=== PATIENT | male | born 1990 | race Caucasian/White ===

== ENCOUNTER 2016-06-27 10:58 | Inpatient (IN) | payer OTHER ==
[~2016-06-27] VITALS: Ht 175.3 cm; Wt 68.9 kg
[~2016-06-27 10:58] MED LIST: KEFLEX500 MG PO; Tylenol PR; Vicodin,Norco 5/325 PO; oxyCODONE PO
[2016-06-27 11:52] LABS: HEMATOCRIT 48.2 % (38.0-50.0); MCH 29.8 PG (29.0-34.0); MCHC 34.2 G/DL (30.0-36.0); MCV 87.2 FL (86-99); MEAN PLAT.VOLUME 9.5 uM^3 (9.0-12.4); PLATELET COUNT 291 K/uL (156-360); RED BLOOD COUNT 5.53 M/uL (4.00-5.50); WHITE BLOOD COUNT 10.2 K/uL (4.1-10.2)
[2016-06-27 12:00] LABS: CHLORIDE 103 mEq/L (99-109); POTASSIUM 4.1 mEq/L (3.7-5.4); SODIUM 137 mEq/L (136-147)
[2016-06-27 12:02] LABS: GLUCOSE 82 mg/dL (70-99)
[2016-06-27 12:04] LABS: ANION GAP 14 MEQ/L (2-14)
[2016-06-27 12:05] LABS: SERUM ETHYL ALCOHOL < 10 mg/dL
[2016-06-27 12:06] LABS: GFR ESTIMATE (CALCULATED) > 59 mL/min/
[2016-06-27 12:07] LABS: UREA NITROGEN (BUN) 12 mg/dL (9-23)
[2016-06-27 12:31] LABS: AMPHETAMINE PRESUMPTIVE POSITIVE (500 ng/mL); BARBITURATES NEGATIVE (200 ng/mL); BENZODIAZEPINES NEGATIVE (150 ng/mL); COCAINE PRESUMPTIVE POSITIVE (150 ng/mL); INTERNAL CONTROLS VALID? YES; METHADONE NEGATIVE (200 ng/mL); METHAMPHETAMINE NEGATIVE (500 ng/mL); OPIATES (MORPHINE) NEGATIVE (100 ng/mL); OXYCODONE NEGATIVE (100 ng/mL); PHENCYCLIDINE NEGATIVE (25 ng/mL); PROPOXYPHENE NEGATIVE (300 ng/mL); THC CANNABINOIDS PRESUMPTIVE POSITIVE (50 ng/mL); TRICYCLIC ANTIDEPRESSANTS NEGATIVE (300 ng/mL)
[2016-06-27 12:32] LABS: ADD MEDTOX COMMENT Y
[2016-06-27] MEDS ORDERED: PROAIR HFA8.5 GM IH (13:10)
[2016-06-27 16:51] VITALS: BP 101/70
[2016-06-28 07:47] VITALS: BP 115/80
[2016-06-28 12:47] VITALS: BP 112/59
[2016-06-28 15:01] VITALS: BP 117/62
[2016-06-28 18:08] VITALS: BP 107/56
[2016-06-28 21:19] VITALS: BP 116/68
[2016-06-29 07:43] VITALS: BP 110/52
== END 2016-06-29 10:19 | disposition home or self-care (01) | DRG 881 ==
LOC: EME 10:58 → EDOF 12:52 → 1WEST 12:52
PROVIDERS: Emergency Medicine
PROC: HZ2ZZZZ Detoxification Services for Substance Abuse Treatment (ICD-10-PCS; principal; 2016-06-27)
DX: F32.9 Major depressive disorder, single episode, unspecified (principal); F11.20 Opioid dependence, uncomplicated; F12.90 Cannabis use, unspecified, uncomplicated; F15.10 Other stimulant abuse, uncomplicated; J45.990 Exercise induced bronchospasm; F17.210 Nicotine dependence, cigarettes, uncomplicated; R45.851 Suicidal ideations; F14.10 Cocaine abuse, uncomplicated; Z81.1 Family history of alcohol abuse and dependence; Z81.8 Family history of other mental and behavioral disorders
CPT/HCPCS: 80048; 84999; 85027; 90839; 99202; 99281; 99285; G0480; Q0169

== ENCOUNTER 2016-07-23 09:33 | Emergency (ER) | payer OTHER ==
[~2016-07-23] VITALS: Ht 175.3 cm; Wt 65.8 kg
[~2016-07-23 09:33] MED LIST changes: +PROAIR HFA8.5 GM IH
[2016-07-23 11:08] LABS: HEMATOCRIT 40.5 % (38.0-50.0); MCH 29.8 PG (29.0-34.0); MCHC 33.8 G/DL (30.0-36.0); MCV 88.2 FL (86-99); MEAN PLAT.VOLUME 10.1 uM^3 (9.0-12.4); PLATELET COUNT 298 K/uL (156-360); RBC DIS.WIDTH-CV 13.5 % (11.8-14.6); RBC DIS.WIDTH-SD 43.8 % (39-53); RED BLOOD COUNT 4.59 M/uL (4.00-5.50); WHITE BLOOD COUNT 10.1 K/uL (4.1-10.2)
[2016-07-23 11:20] LABS: CHLORIDE 110 mEq/L (99-109); POTASSIUM 4.2 mEq/L (3.7-5.4); SODIUM 141 mEq/L (136-147)
[2016-07-23 11:21] LABS: GLUCOSE 95 mg/dL (70-99)
[2016-07-23 11:23] LABS: ANION GAP 8 MEQ/L (2-14)
[2016-07-23 11:25] LABS: GFR ESTIMATE (CALCULATED) > 59 mL/min/; SERUM ETHYL ALCOHOL < 10 mg/dL
[2016-07-23 11:27] LABS: UREA NITROGEN (BUN) 15 mg/dL (9-23)
[2016-07-23 11:28] LABS: SALICYLATE < 5.0 MG/DL (15-30)
[2016-07-23 11:46] LABS: ADD MEDTOX COMMENT Y; AMPHETAMINE NEGATIVE (500 ng/mL); BARBITURATES NEGATIVE (200 ng/mL); BENZODIAZEPINES NEGATIVE (150 ng/mL); COCAINE PRESUMPTIVE POSITIVE (150 ng/mL); INTERNAL CONTROLS VALID? YES; METHADONE NEGATIVE (200 ng/mL); METHAMPHETAMINE NEGATIVE (500 ng/mL); OPIATES (MORPHINE) NEGATIVE (100 ng/mL); OXYCODONE NEGATIVE (100 ng/mL); PHENCYCLIDINE NEGATIVE (25 ng/mL); PROPOXYPHENE NEGATIVE (300 ng/mL); THC CANNABINOIDS PRESUMPTIVE POSITIVE (50 ng/mL); TRICYCLIC ANTIDEPRESSANTS NEGATIVE (300 ng/mL)
[2016-07-23 15:07] VITALS: BP 113/64
== END 2016-07-23 15:22 | disposition home or self-care (01) ==
LOC: EME 09:33
PROVIDERS: Emergency Medicine
DX: F32.9 Major depressive disorder, single episode, unspecified (principal); J45.909 Unspecified asthma, uncomplicated; F17.200 Nicotine dependence, unspecified, uncomplicated; Z59.0 Homelessness
CPT/HCPCS: 80048; 84999; 85027; 90839; 99281; 99284; G0480

== ENCOUNTER 2017-01-19 00:02 | Inpatient (IN) | payer OTHER ==
[~2017-01-19] VITALS: Ht 175.3 cm; Wt 75.3 kg
[2017-01-19 01:19] LABS: BASOPHIL COUNT 0.1 K/uL (0-0.1); EOSINOPHIL (%) 1.6 % (0-5); EOSINOPHIL COUNT 0.2 K/uL (0-0.3); HEMATOCRIT 39.9 % (38.0-50.0); IMMATURE GRANULOCYTE (%) 0.2 % (0.0-0.7); INSTRUMENT ABS NEUTROPHIL CT 7.5 K/uL; LYMPHOCYTE COUNT 3.7 K/uL (1.0-2.8); MCH 29.8 PG (29.0-34.0); MCHC 34.3 G/DL (30.0-36.0); MCV 86.9 FL (86-99); MONOCYTE (%) 5.5 % (3-12); MONOCYTE COUNT 0.7 K/uL (0-0.8); NEUTROPHIL (%) 61.6 % (45-76); NEUTROPHIL COUNT 7.5 K/uL (1.8-6.4); PLATELET COUNT 374 K/uL (156-360); RBC DIS.WIDTH-CV 13.2 % (11.8-14.6); RBC DIS.WIDTH-SD 41.6 % (39-53); RED BLOOD COUNT 4.59 M/uL (4.00-5.50); WHITE BLOOD COUNT 12.1 K/uL (4.1-10.2)
[2017-01-19 01:32] LABS: CHLORIDE 101 mEq/L (99-109); POTASSIUM 3.4 mEq/L (3.7-5.4); SODIUM 136 mEq/L (136-147)
[2017-01-19 01:34] LABS: GLUCOSE 120 mg/dL (70-99)
[2017-01-19 01:36] LABS: ANION GAP 10 MEQ/L (2-14)
[2017-01-19 01:37] LABS: SERUM ETHYL ALCOHOL < 10 mg/dL
[2017-01-19 01:38] LABS: GFR ESTIMATE (CALCULATED) > 59 mL/min/ (58.99-99999)
[2017-01-19 01:39] LABS: UREA NITROGEN (BUN) 12 mg/dL (9-23)
[2017-01-19 03:00] LABS: ADD MEDTOX COMMENT Y; AMPHETAMINE NEGATIVE (500 ng/mL); BARBITURATES NEGATIVE (200 ng/mL); BENZODIAZEPINES NEGATIVE (150 ng/mL); COCAINE PRESUMPTIVE POSITIVE (150 ng/mL); INTERNAL CONTROLS VALID? YES; METHADONE NEGATIVE (200 ng/mL); METHAMPHETAMINE NEGATIVE (500 ng/mL); OPIATES (MORPHINE) NEGATIVE (100 ng/mL); OXYCODONE NEGATIVE (100 ng/mL); PHENCYCLIDINE NEGATIVE (25 ng/mL); PROPOXYPHENE NEGATIVE (300 ng/mL); THC CANNABINOIDS PRESUMPTIVE POSITIVE (50 ng/mL); TRICYCLIC ANTIDEPRESSANTS NEGATIVE (300 ng/mL)
[2017-01-19 03:33] VITALS: BP 134/71
[2017-01-19] MEDS ORDERED: SEROQUEL300 MG PO (03:39)
[2017-01-19] MEDS ORDERED: LAMICTAL200 MG PO (03:40)
[2017-01-19] MEDS ORDERED: SUBOXONE 8 MG-1 EAC2 PO (03:43)
[2017-01-19 07:58] VITALS: BP 118/72
[2017-01-19 15:18] VITALS: BP 124/61
[2017-01-20 07:44] VITALS: BP 97/54
[2017-01-20 17:06] VITALS: BP 116/63
[2017-01-21 07:36] VITALS: BP 103/58
[2017-01-21] MEDS ORDERED: QUETIAPINE FUM100 MG PO (07:43)
[2017-01-21] MEDS ORDERED: LIDOCAINE20 MG/1 M5 MM (07:48)
== END 2017-01-21 08:24 | disposition other institution (70) | DRG 881 ==
LOC: EME 00:02 → 1WEST 02:15 → EDOF 02:15 → ENRESERV 03:04 → 1WEST 03:26
PROVIDERS: Emergency Medicine
DX: F32.9 Major depressive disorder, single episode, unspecified (principal); F11.10 Opioid abuse, uncomplicated; F12.10 Cannabis abuse, uncomplicated; F14.10 Cocaine abuse, uncomplicated; R45.851 Suicidal ideations; J45.990 Exercise induced bronchospasm; F41.9 Anxiety disorder, unspecified; F17.200 Nicotine dependence, unspecified, uncomplicated; Z56.0 Unemployment, unspecified
CPT/HCPCS: 80048; 84999; 85025; 90839; 97150 GO; 97165 GO; 99281; 99285; G0480; Q0177

== ENCOUNTER 2017-03-20 10:46 | Emergency (ER) | payer OTHER ==
[~2017-03-20] VITALS: Ht 175.3 cm; Wt 85.0 kg
[~2017-03-20 10:46] MED LIST changes: +LAMICTAL200 MG PO; +LIDOCAINE20 MG/1 M5 MM; +QUETIAPINE FUM100 MG PO; +SEROQUEL300 MG PO; +SUBOXONE 8 MG-1 EAC2 PO
[2017-03-20 11:54] LABS: APPEARANCE CLEAR ((CLEAR)); BILIRUBIN NEGATIVE; BLOOD NEGATIVE; COLOR YELLOW ((YELLOW)); GLUCOSE (STRIP) NEGATIVE; KETONES NEGATIVE; LEUKOCYTES NEGATIVE; NITRITE NEGATIVE; PROTEIN (STRIP) NEGATIVE; SPECIFIC GRAVITY 1.021 (1.000-1.030); UCUL ADDED? NO; UROBILINOGEN 0.2 MG/DL (0.2-1.0)
[2017-03-20 12:19] LABS: SOURCE URINE
[2017-03-20 13:05] VITALS: BP 130/61
[2017-03-21 12:44] LABS: CHLAMYDIA TRACHOMATIS NEGATIVE; NEISSERIA GONORRHOEAE NEGATIVE
== END 2017-03-20 13:10 | disposition home or self-care (01) ==
LOC: EME 10:46
PROVIDERS: Emergency Medicine
DX: R30.0 Dysuria (principal); J45.909 Unspecified asthma, uncomplicated; F31.9 Bipolar disorder, unspecified; F41.9 Anxiety disorder, unspecified; F17.200 Nicotine dependence, unspecified, uncomplicated
CPT/HCPCS: 81003; 87491; 87591; 99281; 99283

== ENCOUNTER 2017-08-16 19:21 | Inpatient (IN) | payer SELFPAY ==
[2017-08-17 07:55] VITALS: BP 121/88
[2017-08-17 16:00] VITALS: BP 123/69
[2017-08-18 08:13] VITALS: BP 106/52
[2017-08-18 16:51] VITALS: BP 113/57
[2017-08-18 21:36] VITALS: BP 126/62
[2017-08-19 07:36] VITALS: BP 77/40
[2017-08-19 10:38] VITALS: BP 109/56
[2017-08-19 16:18] VITALS: BP 106/59
[2017-08-20 07:40] VITALS: BP 111/53
[2017-08-20 11:54] VITALS: BP 133/69
[2017-08-20 15:15] VITALS: BP 102/57
[2017-08-21 07:43] VITALS: BP 96/50
[2017-08-21 15:04] VITALS: BP 113/58
[2017-08-22 07:42] VITALS: BP 101/56
[2017-08-22] MEDS ORDERED: QUETIAPINE FUM200 MG PO (09:29)
[2017-08-22] MEDS ORDERED: LITHIUM CARBON300 MG PO (09:29)
== END 2017-08-22 11:27 | disposition home or self-care (01) | DRG 881 ==
LOC: 1WEST 19:21
DX: F32.9 Major depressive disorder, single episode, unspecified (principal); F11.20 Opioid dependence, uncomplicated; F14.20 Cocaine dependence, uncomplicated; R45.851 Suicidal ideations; F60.2 Antisocial personality disorder; Z72.89 Other problems related to lifestyle; J45.990 Exercise induced bronchospasm; Z56.0 Unemployment, unspecified; F12.90 Cannabis use, unspecified, uncomplicated
CPT/HCPCS: 90832; 94799; 97150 GO; 97165 GO; J0572; J0574; Q0169; Q0177

== ENCOUNTER 2017-09-29 03:21 | Inpatient (IN) | payer OTHER ==
[~2017-09-29] VITALS: Ht 175.3 cm; Wt 71.4 kg
[~2017-09-29 03:21] MED LIST changes: +LITHIUM CARBON300 MG PO; +QUETIAPINE FUM200 MG PO
[2017-09-29 05:09] LABS: AMPHETAMINE NEGATIVE (500 ng/mL); BENZODIAZEPINES PRESUMPTIVE POSITIVE (150 ng/mL); COCAINE PRESUMPTIVE POSITIVE (150 ng/mL); METHAMPHETAMINE NEGATIVE (500 ng/mL); OPIATES (MORPHINE) PRESUMPTIVE POSITIVE (100 ng/mL); PHENCYCLIDINE NEGATIVE (25 ng/mL); THC CANNABINOIDS PRESUMPTIVE POSITIVE (50 ng/mL)
[2017-09-29 05:10] LABS: BARBITURATES NEGATIVE (200 ng/mL); BUPRENORPHINE PRESUMPTIVE POSITIVE (10 ng/mL); METHADONE NEGATIVE (200 ng/mL); OXYCODONE NEGATIVE (100 ng/mL); PROPOXYPHENE NEGATIVE (300 ng/mL); TRICYCLIC ANTIDEPRESSANTS NEGATIVE (300 ng/mL)
[2017-09-29 06:08] LABS: HEMATOCRIT 35.2 % (38.0-50.0); HEMOGLOBIN 12.4 G/DL (12.5-16.6); MCH 30.5 PG (29.0-34.0); MCHC 35.2 G/DL (30.0-36.0); MCV 86.7 FL (86-99); PLATELET COUNT 270 K/uL (156-360); RBC DIS.WIDTH-CV 13.3 % (11.8-14.6); RBC DIS.WIDTH-SD 42.7 % (39-53); RED BLOOD COUNT 4.06 M/uL (4.00-5.50); WHITE BLOOD COUNT 15.2 K/uL (4.1-10.2)
[2017-09-29 06:36] LABS: CHLORIDE 102 MEQ/L (99-109); GFR ESTIMATE (CALCULATED) > 59 mL/min/ (58.99-99999); GLUCOSE 110 mg/dL (70-99); POTASSIUM 3.6 MEQ/L (3.7-5.4); SODIUM 136 MEQ/L (136-147); UREA NITROGEN (BUN) 14 mg/dL (9-23)
[2017-09-29 06:52] LABS: BENZODIAZEPINES, URINE SCREEN Negative (200 ng/mL)
[2017-09-29 06:54] LABS: SERUM ETHYL ALCOHOL < 10 mg/dL
[2017-09-29 08:04] VITALS: BP 101/62
[2017-09-29 11:24] VITALS: BP 121/56
[2017-09-29 16:25] VITALS: BP 124/57
[2017-09-29 21:58] VITALS: BP 129/69
[2017-09-30 07:45] VITALS: BP 107/60
[2017-09-30] MEDS ORDERED: LITHIUM CARBON300 MG PO (10:18)
[2017-09-30] MEDS ORDERED: QUETIAPINE FUM200 MG PO (10:18)
== END 2017-09-30 10:49 | disposition other institution (70) | DRG 885 ==
LOC: EME 03:21 → EDOF 05:49 → 1WEST 05:49 → ENRESERVTM 07:55 → ENRESERVDT 07:55 → 1WEST 07:57
PROVIDERS: Emergency Medicine
PROC: HZ2ZZZZ Detoxification Services for Substance Abuse Treatment (ICD-10-PCS; principal; 2017-09-29)
DX: F32.89 Other specified depressive episodes (principal); F11.20 Opioid dependence, uncomplicated; R45.851 Suicidal ideations; F14.10 Cocaine abuse, uncomplicated; J45.909 Unspecified asthma, uncomplicated; F17.210 Nicotine dependence, cigarettes, uncomplicated; Z91.14 Patient's other noncompliance with medication regimen
CPT/HCPCS: 71046; 80048; 84999; 85027; 90839; 99281; 99285; G0480; J0574